=== PATIENT | female | born 1990 | race Caucasian/White ===

== ENCOUNTER 2017-09-29 14:35 | Emergency (ER) | payer MEDICAID ==
[~2017-09-29] VITALS: Ht 165.1 cm; Wt 59.0 kg
[2017-09-29 15:41] VITALS: BP 134/67
--- NOTE | 2017-09-29 16:03 | NUR ---
27/F BIB C/O DROPPED COUCH ON R FOOT X YESTERDAY. RIGHT BIG TOE AREA REDNESS & BRUISE . AAOX4 WITH EVEN AND STEADY GAIT. PATIENT STATES PAIN OF 10/10 AT THIS TIME. PATIENT POSITIONED FOR COMFORT; HOB ELEVATED; BEDRAILS UP X2; BED DOWN. ER MD MADE AWARE OF PT STATUS.
--- NOTE | 2017-09-29 17:04 | NUR ---
Patient being evaluated by DR SAMPSON at bedside.
[2017-09-29 17:30] VITALS: BP 120/61
== END 2017-09-29 17:30 | disposition home or self-care (01) ==
LOC: MED 14:35
DX: O9A.219 Injury, poisoning and certain other consequences of external causes complicating pregnancy, unspecified trimester (principal); S90.111A Contusion of right great toe without damage to nail, initial encounter; O23.40 Unspecified infection of urinary tract in pregnancy, unspecified trimester; W20.8XXA Other cause of strike by thrown, projected or falling object, initial encounter; Y93.E9 Activity, other interior property and clothing maintenance; Y92.89 Other specified places as the place of occurrence of the external cause; Y99.8 Other external cause status; Z3A.00 Weeks of gestation of pregnancy not specified
CPT/HCPCS: 11740; 81002; 81025; 99283